=== PATIENT | female | born 1985 | race Caucasian/White ===

== ENCOUNTER 2019-01-27 22:36 | Inpatient (IN) ==
[2019-01-27] MEDS ORDERED: ONDANSETRON 4 MG/2 ML VIAL IVP PRN (22:55)
[2019-01-27] MEDS ORDERED: BUTORPHANOL TARTRATE 2 MG/1 ML VIAL IVP PRN (22:55)
[2019-01-27] MEDS ORDERED: CALCIUM CARBONATE 500 MG (TUMS) CHEWABLE TABLET PO PRN (22:55)
[2019-01-27] MEDS ORDERED: Carboprost Inj 250 MCG/ML AMP IM PRN (22:55)
[2019-01-27] MEDS ORDERED: OXYTOCIN 10 UNIT/1 ML IM PRN (22:55)
[2019-01-27] MEDS ORDERED: FAMOTIDINE 20 MG/2 ML VIAL IVP PRN ×2 (22:55)
[2019-01-27] MEDS ORDERED: Metoclopramide Inj 10 MG/2 ML VIAL IV PRN (22:55)
[2019-01-27] MEDS ORDERED: MISOPROSTOL 200 MCG TABLET RECTAL PRN (22:55)
[2019-01-27] MEDS ORDERED: LIDOCAINE W/ SODIUM BICARB 0.5 ML SYR SUBD PRN (22:55)
[2019-01-27] MEDS ORDERED: CefOXitin Inj 2 GM in Sodium Chloride 0.9% 100 ML IV PRN (22:55)
[2019-01-27] MEDS ORDERED: LIDOCAINE HCL 2 % 10 ML JELLY URO-JECT TOPICAL PRN (22:55)
[2019-01-27] MEDS ORDERED: diphenhydrAMINE 50 MG/1 ML VIAL IVP PRN (22:55)
[2019-01-27] MEDS ORDERED: TERBUTALINE SULFATE 1 MG/1 ML SDV SUBCUT PRN (22:55)
[2019-01-27] MEDS ORDERED: Nalbuphine Inj 20 MG/ML Ampule IVP PRN (22:55)
[2019-01-27] MEDS ORDERED: Lidocaine 1% 10 MG/ML - 20 ML VIAL SUBCUT PRN (22:55)
[2019-01-27] MEDS ORDERED: METHYLERGONOVINE MALEATE 0.2 MG/1 ML VIAL IM PRN (22:55)
[2019-01-27] MEDS ORDERED: Naloxone Inj 0.01 MG in Sodium Chloride 0.9% vial 1 ML IVP PRN (22:55)
[2019-01-27] MEDS ORDERED: NALOXONE 0.4 MG/1 ML VIAL IVP PRN (22:55)
[2019-01-27] MEDS ORDERED: Phenylephrine Inj 50 MCG in Sodium Chloride 0.9% vial 0.5 ML IVP PRN (22:55)
[2019-01-27] MEDS ORDERED: CITRIC ACID/SODIUM CITRATE 30 ML CUP PO PRN (22:55)
[2019-01-27] MEDS ORDERED: Oxytocin 20 Units + LR 20 UNIT/1,000 ML BAG IV SCH (23:00)
[2019-01-27 23:18] LABS: Hematocrit [HCT] 34.3 % (37.0-47.0); Hemoglobin [HGB] 11.5 g/dL (12.0-16.0); MEAN CORPUSCULAR HGB CONC 33.5 g/dL (33-37); MEAN PLATELET VOLUME 11.2 FL (7.4-12.2); RED BLOOD COUNT 3.81 10^6/uL (4.20-5.40)
[2019-01-28] MEDS: Lactated Ringers-OB Dept 1,000 ML PRIMARY IV SCH ×2 (02:46→09:48)
[2019-01-28] MEDS: fentaNYL Inj 100 MCG/2 ML VIAL IVP PRN ×3 (04:47→07:19)
[2019-01-28] MEDS ORDERED: Fent/Bupiv 2mcg/0.0625% Epid 250 ML ONE (05:10)
[2019-01-28] MEDS ORDERED: fentaNYL 2 MCG/BUPIVACAINE 0.0625%/NS 0.9% 250 ML BAG EPIDURAL SCH ×2 (05:30→11:00)
[2019-01-28] MEDS ORDERED: CALCIUM CARBONATE 500 MG (TUMS) CHEWABLE TABLET PO PRN (15:26)
[2019-01-28] MEDS ORDERED: BENZOCAINE/MENTHOL SPRAY 56 GM BOTTLE TOPICAL PRN (15:26)
[2019-01-28] MEDS ORDERED: diphenhydrAMINE 25 MG CAPSULE PO PRN (15:26)
[2019-01-28] MEDS ORDERED: GLYCERIN/WITCH HAZEL 1 BOX TOPICAL PRN (15:26)
[2019-01-28] MEDS ORDERED: Nalbuphine Inj 20 MG/ML Ampule IVP PRN (15:26)
[2019-01-28] MEDS ORDERED: Ondansetron ODT Tab 4 MG TAB PO PRN (15:26)
[2019-01-28] MEDS ORDERED: Lidocaine 1% 10 MG/ML - 20 ML VIAL INTRADERM PRN (15:26)
[2019-01-28] MEDS ORDERED: ACETAMINOPHEN 325 MG TABLET PO PRN (15:26)
[2019-01-28] MEDS ORDERED: LIDOCAINE HCL 2 % 10 ML JELLY URO-JECT TOPICAL PRN (15:26)
[2019-01-28] MEDS ORDERED: ONDANSETRON 4 MG/2 ML VIAL IVP PRN (15:26)
[2019-01-28] MEDS ORDERED: diphenhydrAMINE 50 MG/1 ML VIAL IVP PRN (15:26)
[2019-01-28] MEDS ORDERED: Oxytocin 20 Units + LR 20 UNIT/1,000 ML BAG IV SCH (15:26)
[2019-01-28] MEDS ORDERED: LANOLIN HPA 40 GM TUBE TOPICAL PRN (15:26)
[2019-01-28] MEDS: IBUPROFEN 800 MG TABLET PO PRN (16:34)
[2019-01-29] MEDS: IBUPROFEN 800 MG TABLET PO PRN ×2 (02:18→10:21)
[2019-01-29 05:16] LABS: Hemoglobin [HGB] 10.1 g/dL (12.0-16.0); MEAN CORPUSCULAR HGB CONC 32.6 g/dL (33-37); MEAN CORPUSCULAR VOLUME 91.4 FL (81-99); MEAN PLATELET VOLUME 11.6 FL (7.4-12.2); RED BLOOD COUNT 3.39 10^6/uL (4.20-5.40)
[2019-01-29] MEDS: ACETAMINOPHEN 500 MG TABLET PO PRN ×2 (08:49→15:16)
[2019-01-29] MEDS ORDERED: Prenatal Multivitamin Tab 1 TAB TAB PO SCH (09:00)
[2019-01-29] MEDS ORDERED: DOCUSATE 100 MG CAPSULE PO SCH (09:00)
[2019-01-29] MEDS ORDERED: Lactated Ringers 1,000 ML PRIMARY IV SCH (11:00)
[2019-01-29] MEDS ORDERED: LIDOCAINE W/ SODIUM BICARB 0.5 ML SYR ONE (12:51)
[2019-01-29 16:58] VITALS: BP 98/52; RESP 16; TEMP 97.8; O2SAT 97
== END 2019-01-29 19:20 | disposition home or self-care (01) | DRG 807 ==
LOC: OBOP 22:36 → OBIP 22:59
PROVIDERS: ADMIT Student in an Organized Health Care Education/Training Program; ATTEND Student in an Organized Health Care Education/Training Program